=== PATIENT | female | born 1975 | race African-American/Black ===

== ENCOUNTER 2018-10-26 04:05 | Emergency (ER) | payer MEDICARE ==
[~2018-10-26] VITALS: Ht 160 cm; Wt 59.0 kg
[2018-10-26] MEDS ORDERED: MORPHINE SULFATE 4 MG/ML CPJ (NOT FOR IM USE) IV STA (05:07)
[2018-10-26] MEDS ORDERED: ONDANSETRON HCL 4MG/2ML INJ IV STA (05:07)
[2018-10-26] MEDS ORDERED: SODIUM CHLORIDE 0.9% 1,000 ML IV ONE (05:07)
[2018-10-26 05:26] LABS: BASOPHILS % 1.3 % (0.0-2.0); EOSINOPHILS % 3.6 % (0.0-5.0); HEMATOCRIT. 37.3 % (36.0-48.0); HEMOGLOBIN. 12.7 g/dL (12.0-16.0); MEAN CORPUSCULAR HEMOGLOBIN 33.4 pg (28.0-32.0); MEAN PLATELET VOLUME 8.2 fl (7.4-10.4); MONOCYTES % 7.6 % (2.0-8.0); NEUTROPHILS % 53.5 % (40.0-76.0); PLATELET 250 x1000/uL (130-400)
[2018-10-26 05:29] LABS: CHLORIDE 107 mEq/L (98-107)
[2018-10-26] MEDS ORDERED: DIPHENHYDRAMINE 50MG/ML VIAL IV ONE ×2 (06:15→07:00)
[2018-10-26] MEDS ORDERED: ONDANSETRON HCL 4MG/2ML INJ IV ONE (06:15)
[2018-10-26] MEDS ORDERED: MORPHINE SULFATE 4 MG/ML CPJ (NOT FOR IM USE) IV ONE (07:00)
[2018-10-26] MEDS ORDERED: PROMETHAZINE HCL 6.25 MG/5 ML 118ML PO ONE (07:00)
[2018-10-26] MEDS ORDERED: PROMETHAZINE HCL 25MG TABLET PO ONE (07:30)
[2018-10-26 07:46] VITALS: BP 112/71
== END 2018-10-26 07:50 | disposition home or self-care (01) ==
LOC: ER 04:05
DX: G89.29 Other chronic pain (principal); R10.9 Unspecified abdominal pain; R11.2 Nausea with vomiting, unspecified; K40.90 Unilateral inguinal hernia, without obstruction or gangrene, not specified as recurrent; F12.10 Cannabis abuse, uncomplicated; Z88.8 Allergy status to other drugs, medicaments and biological substances; Z88.6 Allergy status to analgesic agent; Z98.890 Other specified postprocedural states
CPT/HCPCS: 36415; 80053; 85025; 96361; 96374; 96375; 96376; 99283; J1200; J2270; J2405; J7030; Q0169

== ENCOUNTER 2018-10-28 07:01 | Emergency (ER) | payer MEDICARE, OTHER ==
[~2018-10-28] VITALS: Ht 160 cm; Wt 59.0 kg
[2018-10-28] MEDS ORDERED: SODIUM CHLORIDE 0.9% 1,000 ML IV ONE (08:47)
[2018-10-28 08:57] LABS: BASOPHILS % 0.7 % (0.0-2.0); EOSINOPHILS % 1.2 % (0.0-5.0); HEMATOCRIT. 37.5 % (36.0-48.0); HEMOGLOBIN. 12.7 g/dL (12.0-16.0); LYMPHOCYTES % 21.2 % (20.0-50.0); MEAN CORPUSCULAR HEMOGLOBIN 33.1 pg (28.0-32.0); MEAN CORPUSCULAR VOLUME 97.9 fL (81.0-99.0); MEAN PLATELET VOLUME 8.9 fl (7.4-10.4); MONOCYTES % 5.6 % (2.0-8.0); NEUTROPHILS % 71.3 % (40.0-76.0); PLATELET 248 x1000/uL (130-400); RED BLOOD CELL COUNT 3.84 mill/uL (4.2-5.4); RED CELL DISTRIBUTION WIDTH 13.5 % (11.6-14.6)
[2018-10-28 08:59] LABS: CHLORIDE 111 mEq/L (98-107)
[2018-10-28] MEDS ORDERED: FAMOTIDINE 20MG/2ML VIAL IV ONE (09:00)
[2018-10-28] MEDS ORDERED: ONDANSETRON HCL 4MG/2ML INJ IV ONE ×2 (09:00→11:15)
[2018-10-28] MEDS ORDERED: MORPHINE SULFATE 4 MG/ML CPJ (NOT FOR IM USE) IV ONE (09:15)
[2018-10-28 10:04] LABS: CLARITY URINE CLOUDY (CLEAR); COLOR URINE YELLOW (YELLOW); KETONES URINE 3+ (NEGATIVE); LEUKOCYTE ESTERASE URINE NEGATIVE (NEGATIVE); NITRITE URINE NEGATIVE (NEGATIVE); OCCULT BLOOD URINE NEGATIVE (NEGATIVE); PH URINE 8.5 (4.5-8.0); PROTEIN URINE 1+ (NEGATIVE); SPECIFIC GRAVITY URINE 1.024 (1.005-1.030)
[2018-10-28] MEDS ORDERED: KETOROLAC 15MG/ML VIAL IV ONE (11:00)
[2018-10-28] MEDS ORDERED: METOCLOPRAMIDE HCL 10MG/2ML VIAL IV ONE (11:00)
[2018-10-28 11:30] VITALS: BP 121/73
[2018-10-28] MEDS ORDERED: ACETAMINOPHEN 325MG TABLET PO ONE (11:30)
== END 2018-10-28 11:30 | disposition home or self-care (01) ==
LOC: ER 07:01
DX: R10.84 Generalized abdominal pain (principal); R11.2 Nausea with vomiting, unspecified; R19.7 Diarrhea, unspecified
CPT/HCPCS: 36415; 74176; 80048; 80076; 81003; 81025; 83690; 85025; 96374; 96375; 96376; 99284; J2270; J2405; J3490; J7030; J1885; J2765

== ENCOUNTER 2018-12-14 04:59 | Emergency (ER) | payer MEDICARE, OTHER ==
[~2018-12-14] VITALS: Ht 160 cm; Wt 59.0 kg
[2018-12-14] MEDS ORDERED: SODIUM CHLORIDE 0.9% 1,000 ML IV ONE (06:23)
[2018-12-14] MEDS ORDERED: MORPHINE SULFATE 4 MG/ML CPJ (NOT FOR IM USE) IV STA (06:23)
[2018-12-14] MEDS ORDERED: ONDANSETRON HCL 4MG/2ML INJ IV STA (06:23)
[2018-12-14 06:44] LABS: BASOPHILS % 0.9 % (0.0-2.0); EOSINOPHILS % 3.5 % (0.0-5.0); HEMATOCRIT. 37.5 % (36.0-48.0); HEMOGLOBIN. 12.6 g/dL (12.0-16.0); LYMPHOCYTES % 34.9 % (20.0-50.0); MEAN CORPUSCULAR HEMOGLOBIN 33.3 pg (28.0-32.0); MEAN CORPUSCULAR VOLUME 99.2 fL (81.0-99.0); MEAN PLATELET VOLUME 9.5 fl (7.4-10.4); NEUTROPHILS % 52.7 % (40.0-76.0); PLATELET 274 x1000/uL (130-400); RED BLOOD CELL COUNT 3.78 mill/uL (4.2-5.4); RED CELL DISTRIBUTION WIDTH 14.5 % (11.6-14.6)
[2018-12-14 06:48] LABS: CHLORIDE 107 mEq/L (98-107)
[2018-12-14 06:49] LABS: PROTHROMBIN TIME 9.9 sec (9.6-11.0)
[2018-12-14 07:48] LABS: CLARITY URINE CLOUDY (CLEAR); COLOR URINE YELLOW (YELLOW); KETONES URINE TRACE (NEGATIVE); LEUKOCYTE ESTERASE URINE NEGATIVE (NEGATIVE); NITRITE URINE NEGATIVE (NEGATIVE); OCCULT BLOOD URINE NEGATIVE (NEGATIVE); PROTEIN URINE NEGATIVE (NEGATIVE); SPECIFIC GRAVITY URINE 1.027 (1.005-1.030)
[2018-12-14] MEDS ORDERED: CEFTRIAXONE 1 G PREMIX 50 ML IV ONE (08:30)
[2018-12-14] MEDS ORDERED: METRONIDAZOLE 500 MG PREMIX 100 ML IV ONE (08:30)
[2018-12-14] MEDS ORDERED: MORPHINE SULFATE 4 MG/ML CPJ (NOT FOR IM USE) IV ONE (08:30)
[2018-12-14] MEDS ORDERED: DIPHENHYDRAMINE 50MG CAPSULE PO ONE (09:30)
[2018-12-14] MEDS ORDERED: METRONIDAZOLE 500MG TABLET PO ONE (09:30)
[2018-12-14 09:53] VITALS: BP 105/74
== END 2018-12-14 09:54 | disposition home or self-care (01) ==
LOC: ER 04:59
DX: T36.1X5A Adverse effect of cephalosporins and other beta-lactam antibiotics, initial encounter (principal); K52.9 Noninfective gastroenteritis and colitis, unspecified; F17.200 Nicotine dependence, unspecified, uncomplicated; Z98.890 Other specified postprocedural states; Z88.6 Allergy status to analgesic agent; Z88.8 Allergy status to other drugs, medicaments and biological substances; Y92.89 Other specified places as the place of occurrence of the external cause
CPT/HCPCS: 36415; 74177; 80053; 81003; 81025; 83690; 85025; 85610; 93005; 96365; 96368; 96375; 96376; 99284; J0696; J2270; J2405; J3490; J7030; Q0163

== ENCOUNTER 2019-01-11 12:23 | Emergency (ER) | payer MEDICARE, MEDICAID ==
[~2019-01-11] VITALS: Ht 157.5 cm; Wt 62.0 kg
[2019-01-11] MEDS ORDERED: SODIUM CHLORIDE 0.9% 1,000 ML IV ONE (13:02)
[2019-01-11] MEDS ORDERED: MORPHINE SULFATE 4 MG/ML CPJ (NOT FOR IM USE) IV STA (13:02)
[2019-01-11] MEDS ORDERED: ONDANSETRON HCL 4MG/2ML INJ IV STA (13:02)
[2019-01-11 13:29] LABS: HEMATOCRIT. 38.2 % (36.0-48.0); HEMOGLOBIN. 12.8 g/dL (12.0-16.0); LYMPHOCYTES % 17.9 % (20.0-50.0); MEAN CORPUSCULAR HEMOGLOBIN 33.2 pg (28.0-32.0); MEAN PLATELET VOLUME 8.9 fl (7.4-10.4); MONOCYTES % 2.4 % (2.0-8.0); NEUTROPHILS % 78.7 % (40.0-76.0); PLATELET 247 x1000/uL (130-400); RED BLOOD CELL COUNT 3.86 mill/uL (4.2-5.4); RED CELL DISTRIBUTION WIDTH 14.1 % (11.6-14.6)
[2019-01-11 13:37] LABS: CHLORIDE 112 mEq/L (98-107)
[2019-01-11 13:43] LABS: HCG SCREEN NEGATIVE
[2019-01-11] MEDS ORDERED: IOHEXOL-300 100 ML BOTTLE ONE (15:12)
[2019-01-11 15:33] LABS: CLARITY URINE CLOUDY (CLEAR); COLOR URINE YELLOW (YELLOW); KETONES URINE 2+ (NEGATIVE); LEUKOCYTE ESTERASE URINE TRACE (NEGATIVE); NITRITE URINE NEGATIVE (NEGATIVE); OCCULT BLOOD URINE NEGATIVE (NEGATIVE); PH URINE 7.5 (4.5-8.0); PROTEIN URINE TRACE (NEGATIVE); SPECIFIC GRAVITY URINE 1.025 (1.005-1.030); UROBILINOGEN URINE 0.2 E.U./dL (0.2-1.0)
[2019-01-11] MEDS ORDERED: PROMETHAZINE HCL 25MG TABLET PO STA (16:28)
[2019-01-11 16:43] VITALS: BP 125/86
[2019-01-11] MEDS ORDERED: FLUCONAZOLE 150MG TABLET PO NR (16:45)
[2019-01-11] MEDS ORDERED: HYDROCODONE/ACETAMINOPHEN 5/325MG TABLET PO ONE (16:45)
[2019-01-11] MEDS ORDERED: CEFTRIAXONE 1 G PREMIX 50 ML IV ONE (16:45)
[2019-01-11] MEDS ORDERED: FLUCONAZOLE 50MG TABLET PO ONE (16:45)
== END 2019-01-11 17:57 | disposition home or self-care (01) ==
LOC: ER 12:23
DX: N39.0 Urinary tract infection, site not specified (principal); B37.3 Candidiasis of vulva and vagina; Z88.6 Allergy status to analgesic agent; Z88.8 Allergy status to other drugs, medicaments and biological substances
CPT/HCPCS: 36415; 74177; 80053; 81003; 83690; 84703; 85025; 96361; 96365; 96375; 99284; J0696; J2270; J2405; J7030; Q0169; Q9967

== ENCOUNTER 2019-04-11 11:21 | Emergency (ER) | payer MEDICARE, MEDICAID ==
[~2019-04-11] VITALS: Ht 160 cm; Wt 58.0 kg
[2019-04-11] MEDS ORDERED: ONDANSETRON 4MG ODT PO ONE (15:00)
[2019-04-11] MEDS ORDERED: HYDROCODONE/ACETAMINOPHEN 10/325MG TABLET PO ONE (15:00)
[2019-04-11 15:37] VITALS: BP 120/75
== END 2019-04-11 16:22 | disposition left against medical advice (07) ==
LOC: ER 12:57
DX: G89.29 Other chronic pain (principal); R10.9 Unspecified abdominal pain; E86.0 Dehydration; R03.0 Elevated blood-pressure reading, without diagnosis of hypertension; R11.2 Nausea with vomiting, unspecified
CPT/HCPCS: 99283; Q0162

== ENCOUNTER 2022-05-29 12:12 | Emergency (ER) | payer MEDICARE, MEDICAID ==
[~2022-05-29] VITALS: Ht 160 cm; Wt 73.0 kg
[2022-05-29 12:35] VITALS: BP 110/90
[2022-05-29 12:43] LABS: BASOPHILS % 1.3 % (0.0-2.0); EOSINOPHILS % 2.1 % (0.0-5.0); HEMATOCRIT. 37.4 % (36.0-48.0); HEMOGLOBIN. 12.5 g/dL (12.0-16.0); LYMPHOCYTES % 39.9 % (20.0-50.0); MEAN CORPUSCULAR HEMOGLOBIN 32.5 pg (28.0-32.0); MEAN CORPUSCULAR VOLUME 97.1 fL (81.0-99.0); MEAN PLATELET VOLUME 8.2 fl (7.4-10.4); MONOCYTES % 6.5 % (2.0-8.0); NEUTROPHILS % 50.2 % (40.0-76.0); PLATELET 369 x1000/uL (130-400); RED BLOOD CELL COUNT 3.85 mill/uL (4.2-5.4)
[2022-05-29 12:52] LABS: CHLORIDE 105 mEq/L (98-107)
[2022-05-29 13:04] LABS: HCG SCREEN NEGATIVE
[2022-05-29 14:32] LABS: CLARITY URINE CLEAR (CLEAR); COLOR URINE YELLOW (YELLOW); KETONES URINE 1+ (NEGATIVE); LEUKOCYTE ESTERASE URINE NEGATIVE (NEGATIVE); NITRITE URINE NEGATIVE (NEGATIVE); OCCULT BLOOD URINE NEGATIVE (NEGATIVE); PH URINE 7.5 (4.5-8.0); PROTEIN URINE NEGATIVE (NEGATIVE); SPECIFIC GRAVITY URINE 1.015 (1.005-1.030); UROBILINOGEN URINE 0.2 E.U./dL (0.2-1.0)
== END 2022-05-29 15:31 | disposition left against medical advice (07) ==
LOC: ER 12:12
DX: M54.9 Dorsalgia, unspecified (principal); Z53.21 Procedure and treatment not carried out due to patient leaving prior to being seen by health care provider
CPT/HCPCS: 36415; 80053; 81003; 84703; 85025; 99281